=== PATIENT | male | born 1985 | race Caucasian/White ===

== ENCOUNTER 2017-01-02 16:05 | Emergency (ER) | payer OTHER ==
[~2017-01-02] VITALS: Ht 180.3 cm; Wt 90.9 kg
[2017-01-02 16:09] VITALS: BP 124/80; PULSE 54; RESP 17; O2SAT 99
--- NOTE | 2017-01-02 16:17 | ED.REPORT ---
HPI-Extremity Problem Upper Date of Service Jan 02, 2017 ED Provider: Edgar Ahumada DO The patient is a 31 year old male who presents to the emergency department complaining of a left hand injury that occurred a few hours ago. The patient accidentally smashed his hand with a hammer. He complains of pain and swelling. He is still able to move his fingers and wrist. He denies numbness or weakness. He denies any other injuries. His tetanus is up to date. Nursing Notes Stated Complaint: LEFT HAND INJURY Chief Complaint: Extremity Trauma Nursing Notes Reviewed: Yes Allergies: Coded Allergies: No Known Allergies (Unverified , 01/02/17) General Time Seen by MD: 16:14 Chief Complaint Hand Injury left Hx Obtained From: Patient Arrived By: Walk-in Onset Occurred: 1 - 4 hours ago Symptom Duration: Since onset Caused by: Blunt injury Location: : Hand left Quality: Painful Severity: Current: Moderate Severity: Maximum: Severe Exacerbated by: Movement Relieved by: Immobilization, OTC medications Recent Healthcare: No recent doctor visit, No recent hospitalization Similar Sx Previous: No Past Medical History Past Medical History Denies Past Surgical History Heart surgery as a child Family History Noncontributory Smoking History Unknown if Ever Smoker Social History Other Social History: Good social support, Local resident Ambulatory Status Independent Review of Systems Musculoskeletal: Reports: Extremity pain, Extremity swelling, Joint pain, Joint swelling Neurologic: Denies: Focal weakness, Numbness, Weakness Complete sys rev & neg: except as marked. Physical Exam Initial Vital Signs Vital Signs (First) Date Time Temp Pulse Resp B/P Pulse Ox O2 Delivery O2 Flow Rate FiO2 01/02/17 16:09 36.4 54 17 124/80 99 Room Air Initial VS: Reviewed Head / Eyes: Atraumatic, Normocephalic, PERRL ENT: Mucous membranes moist, Conjunctiva normal, No scleral icterus Neck: Supple, Non-tender, Full range of motion Respiratory: No respiratory distress Abdomen / GI: No distention Lower Extremities: Vascular intact, Neuro intact, No swelling, No tenderness Skin: Warm, Dry, No cyanosis Neurologic: Alert, Oriented, Nonfocal Psychiatric: Mood/affect normal, Behavior normal, Normal thought content General/Constitutional: Awake, Alert, Cooperative Wrist / Hand: Neurologic intact, Vascular intact There is swelling of the dorsum of his left hand at the base of his 2nd and 3rd metacarpal with tenderness to palpation. Interpretation & Diagnostics X-Ray Interpretation Xray Interpretation: IMPRESSION: 1. No fracture or radiopaque foreign bodies. Dictated by: Hayder Ortiz M.D. on 01/02/2017 at 17:13 X-Ray Ordered: Hand left Interpretation / Wet Read by: Interpret - Radiologist Re-Eval/Medical Decision Source of Hx: Old records Re-Evaluation/Progress : Time of Eval: 17:19 Re-Evaluation/Progress Note: Rechecked the patient. Discussed x-ray results, diagnosis, and plan for discharge. All questions were addressed. Counseled Regarding: Diagnosis, Need for follow-up, When/why to return to ED Discharge & Departure Impression: Primary Impression: Injury of left hand Encounter type: initial encounter Qualified Code: S69.92XA - Unspecified injury of left wrist, hand and finger(s), initial encounter Disposition: Home Discharge Condition All VS Reviewed: Yes Condition: Stable Additional Instructions: Thank you for entrusting us with your care today. Your x-ray does not show evidence of any fractures. Take Naproxen as needed for your pain. Apply ice to the painful areas if it helps. Use your baldo wrap at home as needed. Return to the emergency department for increased pain, numbness, weakness, discoloration, or any other new or concerning symptoms. Scribe Attestation Portions of this note were transcribed by Susan Morgan. I, Dr. Ahumada personally performed the history, physical exam and medical decision-making; I reviewed and confirmed the accuracy of the information in the transcribed note. Signed by: Eli Paula, 01/02/2017 at 1735. Edgar Ahumada DO Jan 02, 2017 16:17 Susan Morgan Jan 02, 2017 16:24
--- NOTE | 2017-01-02 17:16 | DRSVH ---
PROCEDURE: X-RAY LEFT HAND, MINIMUM THREE VIEWS ([id number]) INDICATIONS: LEFT HAND INJURY; RULE OUT FRACTURE TECHNIQUE: 3 views of the left hand acquired. COMPARISON: None. FINDINGS: Bones: No fractures or dislocations. Carpal bones are normally aligned. No suspicious bony lesions . Soft tissues: No suspicious soft tissue calcifications. No radiopaque foreign bodies. IMPRESSION: 1. No fracture or radiopaque foreign bodies. Dictated by: Hayder Ortiz M.D. on 01/02/2017 at 17:13 Approved by: Hayder Ortiz M.D. on 01/02/2017 at 17:14
[2017-01-02 17:31] VITALS: BP 115/70; PULSE 57; RESP 18; O2SAT 97
== END 2017-01-02 17:32 | disposition home or self-care (01) ==
LOC: SED 16:05
DX: S67.22XA Crushing injury of left hand, initial encounter (principal); W27.0XXA Contact with workbench tool, initial encounter; Y93.89 Activity, other specified; Y92.89 Other specified places as the place of occurrence of the external cause; Y99.8 Other external cause status